=== PATIENT | female | born 1995 | race Two or more races ===

== ENCOUNTER 2020-07-30 10:22 | Inpatient (IN) | payer MEDICAID ==
[2020-07-30] MEDS ORDERED: RINGERS SOLUTION,LACTATED 500 ML IV ONE (10:29)
[2020-07-30] MEDS ORDERED: RINGERS SOLUTION,LACTATED 1,000 ML IV ONE (10:29)
[2020-07-30] MEDS ORDERED: DIPH/PERTUSS(ACELL)/TETANUS VAC/PF 0.5 ML SYR (>=10YO) IM PRN (10:35)
[2020-07-30] MEDS ORDERED: DIPHENHYDRAMINE HCL 25 MG CAPSULE PO PRN (10:35)
[2020-07-30] MEDS ORDERED: BENZOCAINE/MENTHOL AEROSOL SPRAY 56 ML TOP PRN (10:35)
[2020-07-30] MEDS ORDERED: DIBUCAINE 1% OINTMENT 28 GM TP PRN (10:35)
[2020-07-30] MEDS ORDERED: OXYTOCIN/0.9 % SODIUM CHLORIDE 30 UNIT/500 ML RTUINJ IV PRN (10:35)
[2020-07-30] MEDS ORDERED: FAMOTIDINE 20 MG TABLET PO PRN (10:35)
[2020-07-30] MEDS ORDERED: MAG HYDROX/AL HYDROX/SIMETH SUSP 30 ML UDCUP PO PRN (10:35)
[2020-07-30] MEDS ORDERED: ZOLPIDEM TARTRATE 5 MG TABLET PO PRN (10:35)
[2020-07-30] MEDS ORDERED: VARICELLA VACC/PF (1350 UNIT/0.5 ML) 0.5 ML VIAL SUBCUT PRN (10:35)
[2020-07-30] MEDS ORDERED: MAGNESIUM HYDROXIDE SUSP 30 ML UDCUP PO PRN (10:35)
[2020-07-30] MEDS ORDERED: ACETAMINOPHEN WITH CODEINE #3 TABLET PO PRN ×2 (10:35)
[2020-07-30] MEDS ORDERED: GLYCERIN/WITCH HAZEL LEAF 1 EACH MED..WIPE TP PRN (10:35)
[2020-07-30] MEDS ORDERED: ACETAMINOPHEN 650 MG SUPP.RECT PR PRN (10:35)
[2020-07-30] MEDS ORDERED: PSEUDOEPHEDRINE HCL 30 MG TABLET PO PRN (10:35)
[2020-07-30] MEDS ORDERED: ACETAMINOPHEN 325 MG TABLET PO PRN (10:35)
[2020-07-30] MEDS ORDERED: MEASLES,MUMPS&RUBELLA VACC/PF 0.5 ML VIAL SUBCUT PRN (10:35)
[2020-07-30] MEDS ORDERED: FENTANYL CITRATE INJ/PF 100 MCG/2 ML AMPUL IV ONE (10:39)
[2020-07-30 11:03] LABS: RBCS (WET MOUNT) 4+ RBCS SEEN; T.VAGINALIS (WET MOUNT) NO TRICHOMONAS SEEN; WBCS (WET MOUNT) RARE WBCS SEEN; YEAST (WET MOUNT) NO YEAST SEEN
[2020-07-30 11:05] LABS: ABSOLUTE MONOCYTES (AUTO) 0.3 10^3/uL (0.1-1.4); BASOPHILS % (AUTO) 0.3 % (0-2); EOSINOPHILS % (AUTO) 0.1 % (0-6); HEMATOCRIT 29.7 % (36.0-47.0); HEMOGLOBIN 9.6 g/dL (12.0-15.5); LYMPHOCYTES % (AUTO) 8.2 % (13-45); MEAN CORPUSCULAR HEMOGLOBIN 27.1 pg (27.0-33.4); MEAN CORPUSCULAR HGB CONC 32.2 g/dL (32.0-36.0); MEAN CORPUSCULAR VOLUME 84 fl (80-97); MONOCYTES % (AUTO) 2.4 % (3-13); PLATELET COUNT 258 10^3/uL (150-450); RED BLOOD COUNT 3.53 10^6/uL (3.72-5.28); RED CELL DISTRIBUTION WIDTH 14.2 % (11.5-14.0); TOTAL CELLS COUNTED % (AUTO) 100 %; WHITE BLOOD COUNT 12.4 10^3/uL (4.0-10.5)
[2020-07-30 11:11] LABS: APPEARANCE,URINE CLOUDY; BILIRUBIN,URINE NEGATIVE (NEGATIVE); COLOR,URINE YELLOW; GLUCOSE, URINE NEGATIVE (NEGATIVE); KETONES,URINE 20 mg/dL (NEGATIVE); PROTEIN,URINE 30 mg/dL (NEGATIVE); URINE SPECIFIC GRAVITY 1.015; UROBILINOGEN,URINE NEGATIVE mg/dL (<2.0)
--- NOTE | 2020-07-30 11:23 | Admission Physical ---
Datetime Report Generated by CPN: 07/30/2020 11:23 CURRENT ADMISSION Hx Assessment: The History has been Updated Chief Complaint Other: Delivered by EMS, 34 weeks Indication for Induction: Not Applicable Admit Impression- Other: Delivered by EMS ALLERGIES Medication Allergies: No Medication Allergies: No Known Allergies (07/30/2020) Latex: No Latex Allergies OBSTETRICAL HISTORY EDC: 09/05/2020 00:00 : 2 Para: 1 SEE RECORDS Alcohol: No Marijuana : No Cocaine: No Other Illicit Drugs: No Cigarettes: Never Smoker. [id number] PHYSICAL EXAM General: Normal HEENT: Deferred Neurologic: Deferred Thyroid: Normal Heart: Normal Lungs: Normal Breast: Normal Back: Normal Abdomen: Normal Genitourinary Exam: Normal Extremities: Normal DTRs: Normal Pelvic Type: Adequate Physical Exam Comments: 25 y/o OB care in [place] at [facility] OB Labs and GTT done Vital Signs: Reviewed FETUS A Admit Comment: 24 y/o G2 Pa admitteed to LD after delivering at home by EMS, Apr 25 2018, PNC in [facility], lives in [place], unsure when she started PNC, thinks after 20 weeks, sono last Friday for growth and was told everything was ok, No smoking, no alcohol, no illegal drugs, , hsb Da age 27, blk, feels safe at home No covid, no travel in last year, no Toxo, taking PNV's and antibiotic for UTI Hx depression and anxiety, parents live here in [place] Plans to breast and bottle Dr. Beltran examined pt and removed placenta, given Ancef and IV Pitocin, baby in nursery Will obtain records Stable condition PLANS FOR LABOR AND DELIVERY Labor and Delivery: None Pain Management: None Feeding Preference: Both Benefit of Breast Feed Discussed: Yes Circumcision: N/A INFORMED CONSENT Assignment: Yi Beltran MD Signature: with User ID: [email or web address] : with User ID: [email or web address]
[2020-07-30 11:27] LABS: URINE AMPHETAMINES SCREEN NEGATIVE; URINE BARBITURATES SCREEN NEGATIVE; URINE BENZODIAZEPINES SCREEN NEGATIVE; URINE COCAINE SCREEN NEGATIVE; URINE MARIJUANA (THC) SCREEN NEGATIVE; URINE METHADONE SCREEN NEGATIVE; URINE PHENCYCLIDINE SCREEN NEGATIVE
[2020-07-30] MEDS ORDERED: CEFAZOLIN 2 GM/D5W RTU 2 GM/50 ML RTUPB IV SCH (12:00)
[2020-07-30 12:28] LABS: CHLAM PCR NOT DETECTED (NOT DETECT)
--- NOTE | 2020-07-30 15:40 | Warning Signs in Babies ---
VOD Warning Signs Datetime Report Generated by [facility]: 07/30/2020 15:40 VOD#608 -Warning Signs in Babies: Viewed with Parent(s)/Family (07/30/2020 12:53:Beth Powers RN)
[2020-07-30] MEDS ORDERED: MISOPROSTOL 0.2 MG TABLET ONE (16:39)
--- NOTE | 2020-07-30 17:22 | Delivery Summary ---
Del Sum A-C Datetime Report Generated by CPN: 07/30/2020 17:21 DELIVERY PERSONNEL DELIVERY PERSONNEL: [id number] Delivery Doctor:: Yi Beltran MD Nurse Gear Technician Certified:: Grace Sharma CNM Labor and Delivery Nurse:: Beth Powers RN Neonatal Nurse Practitioner:: JAMAL Espitia Pattern Gater/WIREWORKER: [facility], [employer] MATERNAL INFORMATION Delivery Anesthesia: None Meds After Delivery Comment: Pitocin 20 units IM Estimated Blood Loss (ml): 50 Delivery QBL: 50 Maternal Complications: Precipitous Labor (<3hrs) Provider Comments: Pt arrived by EMS with baby on chest skin to skin and cor already clamped and cut. reportedly delivered approx 30 minutes previously. Female Infant to NICU immediately upon arrival. Placenta delivered intact spontaneously. Small right labial laceration hemostatic. FF at U. Mother stable upon provider leaving the room LABOR SUMMARY EDC: 09/05/2020 00:00 No. Babies in Womb: 1 Attempted: No Labor Anesthesia: None LABOR INFORMATION Oxytocin: N/A Group B Beta Strep: negative STAGES OF LABOR Stage 3 hr: 0 Stage 3 min: 44 VAGINAL DELIVERY Episiotomy: None Laceration #1: Vaginal Laceration Extension #1: N/A Other Laceration: R vaginal, labial, hemostatic Laceration Repair: Not Applicable Sponge Count Correct: Yes Sharps Count Correct: Yes CSECTION DELIVERY Primary Indication: N/A Secondary Indication: N/A CSection Incidence: N/A Labor: N/A Elective: N/A CSection Incision: N/A BABY A INFORMATION Infant Delivery Date/Time: 07/30/2020 09:34 Method of Delivery: Vaginal Nurse Controlled Delivery: No Born in Route : Yes : N/A Forceps: N/A Vacuum Extraction: N/A Shoulder Dystocia : No PLACENTA INFORMATION BABY A Placenta Delivery Time : 07/30/2020 10:18 Placenta Method of Delivery: Expressed Placenta Status: Delivered INFORMATION BABY A Gestational Age at Delivery: 34.5 Gestational Status: Late - 34- 36.6 Weeks Infant Outcome : Liveborn Infant Condition : Stable Sex: Female IDENTIFICATION BABY A Verification Date/Time: 07/30/2020 11:48 ID Band Number: [id number] Mother's Name Verified: Yes Infant RN Verifying : M. Gio RN, C. Lowell RN WEIGHT/LENGTH BABY A Birthweight (gm): 1976 Infant Weight (lb): 4 Infant Weight (oz): 6 Infant Length (in): 18.50 Infant Length (cm): 46.99 BABY B INFORMATION : N/A SIGNATURES Signature: with User ID: [email or web address]
--- NOTE | 2020-07-30 17:22 | Birth Certificate Data ---
Cert Data Datetime Report Generated by CPN: 07/30/2020 17:21 CERTIFICATE DATA Delivery Provider: Yi Beltran, MD (07/30/2020 10:48:Beth Gio, RN) Mother's Height 50b. Height Inches: 60 (07/30/2020 11:24:QS system process) Mother's Weight 51a. Pre- Weight (lbs): 88 (07/30/2020 10:48:Beth Powers RN) 51b. Weight at Delivery (lbs): 211 (07/30/2020 11:24:QS system process) 52. Dt Last Normal Menses Began: 11/30/2019 00:00 (07/30/2020 10:48:Beth Powers RN) Infections Present/Treated Results this Hospital Visit : Negative (07/30/2020 10:48:Beth Powers RN) Results this Hospital Visit: Negative (07/30/2020 10:48:Beth Powers RN) Results this Hospital Visit: Negative (07/30/2020 10:48:Beth Powers RN) 53i. Date Tested: 05/04/2020 00:00 (07/30/2020 10:48:Beth Powers RN) 53j. Test Result: Negative (07/30/2020 10:48:Beth Powers RN) Cigarette Smoking Cigarette Smoking: Never Smoker. [id number] (07/30/2020 10:48:Beth Powers RN) 57a. Induction of Labor: N/A (07/30/2020 10:48:Beth Powers RN) 57h. Intolerance of Labor: N/A (07/30/2020 10:48:Beth Powers RN) : N/A (07/30/2020 10:48:Beth Powers RN) 57i. Epidural/Spinal Anesthesia: None (07/30/2020 10:48:Beth Powers RN) Method of Delivery 58a. Forceps - Unsuccessful A: N/A (07/30/2020 10:48:Beth Powers RN) 58b. Vacuum - Unsuccessful A: N/A (07/30/2020 10:48:Beth Powers RN) Final Route and Method of Del 58d. Baby A Route/Delivery: Vaginal (07/30/2020 10:48:Beth Powers RN) 58e. Trial of Labor Attempted: No (07/30/2020 10:48:Beth Powers RN) 58e. Trial of Labor Attempted A: N/A (07/30/2020 10:48:Beth Powers RN) 58e. Trial of Labor Attempted B: N/A (07/30/2020 10:48:Beth Powers RN) Maternal Morbidity 59b. 3rd or 4th Degree Lacs: Vaginal (07/30/2020 10:48:Beth Powers RN) 59b. 3rd or 4th Degree Lacs: R vaginal, labial, hemostatic (07/30/2020 10:48:Beth Powers RN) Birthweight Baby A: 1976 (07/30/2020 10:48:Beth Diego RN) 60a. Pounds : 4 (07/30/2020 10:48:QS system process) 60b. Ounces: 6 (07/30/2020 10:48:QS system process) 61. GA at Delivery Baby A: 34.5 (07/30/2020 10:48:Beth Powers RN) : Late - 34- 36.6 Weeks (07/30/2020 10:48:QS system process)
[2020-07-30] MEDS: FERROUS SULFATE 325 MG TABLET PO SCH (18:07)
[2020-07-30] MEDS: DOCUSATE SODIUM 100 MG CAPSULE PO SCH (18:25)
[2020-07-30] MEDS ORDERED: FENTANYL CITRATE INJ/PF 100 MCG/2 ML AMPUL ONE (19:19)
[2020-07-30] MEDS ORDERED: CEFAZOLIN 2 GM/D5W RTU 2 GM/50 ML RTUPB IV ONE (19:20)
[2020-07-30] MEDS: IBUPROFEN 800 MG TABLET PO SCH (21:18)
[2020-07-31] MEDS: IBUPROFEN 800 MG TABLET PO SCH ×4 (02:56→21:48)
[2020-07-31 06:33] LABS: HEMATOCRIT 29.7 % (36.0-47.0); HEMOGLOBIN 9.7 g/dL (12.0-15.5); MEAN CORPUSCULAR HEMOGLOBIN 27.4 pg (27.0-33.4); MEAN CORPUSCULAR HGB CONC 32.7 g/dL (32.0-36.0); MEAN CORPUSCULAR VOLUME 84 fl (80-97); PLATELET COUNT 267 10^3/uL (150-450); RED BLOOD COUNT 3.55 10^6/uL (3.72-5.28); RED CELL DISTRIBUTION WIDTH 14.5 % (11.5-14.0); WHITE BLOOD COUNT 13.8 10^3/uL (4.0-10.5)
--- NOTE | 2020-07-31 09:45 | PDOC PROGRESS REPORT ---
Subjective-OB Progress Note for:: 07/31/20 - PP Day #1, doing well, no complaints. S/p Home delivery, PNC in [place]. Pt UOB, has voided, A+, Rubella Immune, breast and bottlefeeding Physical Exam (OB) Vital Signs: Temp Pulse Resp BP Pulse Ox 97.5 F 75 16 127/58 H 100 07/31/20 07:35 07/31/20 07:35 07/31/20 07:35 07/31/20 07:35 07/31/20 07:35 Intake & Output 07/30/20 07/31/20 08/01/20 06:59 06:59 06:59 Intake Total 50 Balance 50 Weight 96 kg - General General Appearance: Appears well, Alert In distress: None - PIH/Pre-Eclampsia Clonus: Negative Headache: Absent Epigastric Pain: No Visual Changes: No - Maternal Morbidity 59. Maternal Morbidity (serious complications experinced by the mother associated with labor and delivery: None of the above - Lochia Lochia Amount: Small 10-25 ml Lochia Color: Rubra/Red - Abdomen Description: Soft Hernia Present: No Fundal Description: Firm, Midline Fundal Height: u/u - u/2 - Respiratory Respiratory Status: No respiratory distress - Abdominal Distension: No distension Tenderness: Nontender - Genitourinary Genitourinary Note: voiding - Extremities Upper extremity: Normal inspection Lower extremities: Normal inspection - Neurological Cognition: Normal Orientation: AAOx4 - Psychological Associated symptoms: Normal affect, Normal mood - Skin Skin Temperature: Warm Skin Moisture: Dry Objective-Diagnostic Laboratory: 07/31/20 06:01 07/30/20 07/30/20 07/30/20 10:30 10:43 10:43 WBC 12.4 H RBC 3.53 L Hgb 9.6 L Hct 29.7 L MCV 84 MCH 27.1 MCHC 32.2 RDW 14.2 H Plt Count 258 Seg Neutrophils % 89.0 H Urine Color YELLOW Urine Appearance CLOUDY Urine pH 6.0 Ur Specific Man 1.015 Urine Protein 30 H Urine Glucose (UA) NEGATIVE Urine Ketones 20 H Urine Blood MODERATE H Urine RBC (Auto) 14 Blood Type A POSITIVE Antibody Screen NEGATIVE 07/31/20 06:01 WBC 13.8 H RBC 3.55 L Hgb 9.7 L Hct 29.7 L MCV 84 MCH 27.4 MCHC 32.7 RDW 14.5 H Plt Count 267 Seg Neutrophils % Urine Color Urine Appearance Urine pH Ur Specific Man Urine Protein Urine Glucose (UA) Urine Ketones Urine Blood Urine RBC (Auto) Blood Type Antibody Screen Assessment and Plan(PN) - Assessment and Plan (1) Anemia affecting Qualifiers: Trimester: third trimester Qualified Code(s): O99.013 - Anemia complicating , third trimester Is this a current diagnosis for this admission?: Yes (2) Precipitous delivery, delivered (current hospitalization) Is this a current diagnosis for this admission?: Yes (3) delivery, delivered Is this a current diagnosis for this admission?: Yes Plan:: Routine PP orders, ambulation encouraged. - Time Spent with Patient Time with patient: Less than 15 minutes - Disposition Anticipated Discharge Disposition: Home, Self Care Anticipated Discharge Timeframe: within 24 hours
[2020-07-31] MEDS: FERROUS SULFATE 325 MG TABLET PO SCH ×2 (10:25→18:26)
[2020-07-31] MEDS: DOCUSATE SODIUM 100 MG CAPSULE PO SCH ×2 (10:25→18:26)
[2020-07-31] MEDS: SENNOSIDES/DOCUSATE 8.6-50 MG 1 EACH TABLET PO SCH (10:26)
[2020-07-31] MEDS: PRENATAL VITAMIN W DHA CAPSULE PO SCH (10:26)
[2020-08-01] MEDS: IBUPROFEN 800 MG TABLET PO SCH (05:24)
[2020-08-01 07:37] LABS: HEPATITIS C VIRUS AB <0.1 s/co ratio (0.0-0.9)
[2020-08-01 07:46] VITALS: BP 109/73
[2020-08-01 08:09] LABS: HEPATITS B SURFACE ANTIGEN Negative (Negative)
[2020-08-01] MEDS: FERROUS SULFATE 325 MG TABLET PO SCH (10:35)
[2020-08-01] MEDS: PRENATAL VITAMIN W DHA CAPSULE PO SCH (10:35)
[2020-08-01] MEDS: DOCUSATE SODIUM 100 MG CAPSULE PO SCH (10:35)
[2020-08-01] MEDS: SENNOSIDES/DOCUSATE 8.6-50 MG 1 EACH TABLET PO SCH (10:35)
--- NOTE | 2020-08-01 11:16 | PDOC DISCHARGE SUMMARY ---
Impression - Admit/DC Date/PCP Admission Date/Primary Care Provider: 07/30/20 10:31 Discharge Date: 08/01/20 - Discharge Diagnosis (1) Encounter for care after unplanned out of hospital delivery Is this a current diagnosis for this admission?: Yes (2) Anemia affecting Is this a current diagnosis for this admission?: Yes (3) delivery, delivered Is this a current diagnosis for this admission?: Yes - Additional Information Discharge Diet: Regular Discharge Activity: Balance Activity w/Rest, Pelvic Rest Home Medications: No122/Iron/Folic Acid [ Multi Tablet] 1 tab PO DAILY 07/30/20 Acetaminophen [Tylenol 325 mg Tablet] 650 mg PO Q4HP PRN tablet 08/01/20 Hospital Course 59. Maternal Morbidity (serious complications experinced by the mother associat ed with labor and delivery: None of the above Results Laboratory Results: WBC 13.8 10^3/uL (4.0-10.5) H 07/31/20 06:01 RBC 3.55 10^6/uL (3.72-5.28) L 07/31/20 06:01 Hgb 9.7 g/dL (12.0-15.5) L 07/31/20 06:01 Hct 29.7 % (36.0-47.0) L 07/31/20 06:01 MCV 84 fl (80-97) 07/31/20 06:01 MCH 27.4 pg (27.0-33.4) 07/31/20 06:01 MCHC 32.7 g/dL (32.0-36.0) 07/31/20 06:01 RDW 14.5 % (11.5-14.0) H 07/31/20 06:01 Plt Count 267 10^3/uL (150-450) 07/31/20 06:01 Lymph % (Auto) 8.2 % (13-45) L 07/30/20 10:43 [place] % (Auto) 2.4 % (3-13) L 07/30/20 10:43 Eos % (Auto) 0.1 % (0-6) 07/30/20 10:43 Baso % (Auto) 0.3 % (0-2) 07/30/20 10:43 Absolute Neuts (auto) 11.0 10^3/uL (1.7-8.2) H 07/30/20 10:43 Absolute Lymphs (auto) 1.0 10^3/uL (0.5-4.7) 07/30/20 10:43 Absolute Monos (auto) 0.3 10^3/uL (0.1-1.4) 07/30/20 10:43 Absolute Eos (auto) 0.0 10^3/uL (0.0-0.6) 07/30/20 10:43 Absolute Basos (auto) 0.0 10^3/uL (0.0-0.2) 07/30/20 10:43 Seg Neutrophils % 89.0 % (42-78) H 07/30/20 10:43 Urine Color YELLOW 07/30/20 10:30 Urine Appearance CLOUDY 07/30/20 10:30 Urine pH 6.0 (5.0-9.0) 07/30/20 10:30 Ur Specific [place] 1.015 07/30/20 10:30 Urine Protein 30 mg/dL (NEGATIVE) H 07/30/20 10:30 Urine Glucose (UA) NEGATIVE mg/dL (NEGATIVE) 07/30/20 10:30 Urine Ketones 20 mg/dL (NEGATIVE) H 07/30/20 10:30 Urine Blood MODERATE (NEGATIVE) H 07/30/20 10:30 Urine Nitrite (Reflex) NEGATIVE (NEGATIVE) 07/30/20 10:30 Urine Bilirubin NEGATIVE (NEGATIVE) 07/30/20 10:30 Urine Urobilinogen NEGATIVE mg/dL (<2.0) 07/30/20 10:30 Leukocyte Esterase Rfl LARGE (NEGATIVE) H 07/30/20 10:30 Urine RBC (Auto) 14 /HPF 07/30/20 10:30 Urine Bacteria (Auto) 3+ /HPF 07/30/20 10:30 Urine WBC (Reflex) > 182 /HPF 07/30/20 10:30 Urine WBC Clumps MANY /HPF 07/30/20 10:30 Squamous Epi Cells Auto 2 /HPF 07/30/20 10:30 Urine Mucus (Auto) RARE /LPF 07/30/20 10:30 Urine Ascorbic Acid NEGATIVE (NEGATIVE) 07/30/20 10:30 Trichomonas (Wet Prep) NO TRICHOMONAS SEEN 07/30/20 10:40 Vaginal WBC RARE WBCS SEEN 07/30/20 10:40 Vaginal RBC 4+ RBCS SEEN 07/30/20 10:40 Vaginal Yeast NO YEAST SEEN 07/30/20 10:40 Urine Opiates Screen NEGATIVE 07/30/20 10:30 Urine Methadone Screen NEGATIVE 07/30/20 10:30 Ur Barbiturates Screen NEGATIVE 07/30/20 10:30 Ur Phencyclidine Scrn NEGATIVE 07/30/20 10:30 Ur Amphetamines Screen NEGATIVE 07/30/20 10:30 U Benzodiazepines Scrn NEGATIVE 07/30/20 10:30 Urine Cocaine Screen NEGATIVE 07/30/20 10:30 U Marijuana (THC) Screen NEGATIVE 07/30/20 10:30 RPR NONREACTIVE (NONREACTIVE) 07/30/20 10:43 Chlamydia DNA (PCR) NOT DETECTED (NOT DETECT) 07/30/20 10:40 Hep Bs Antigen Negative (Negative) 07/30/20 10:43 Hepatitis C (TABATHA) <0.1 s/co ratio (0.0-0.9) 07/30/20 10:43 Hep C Verif Com 1 Comment (.) 07/30/20 10:43 HIV 1&2 Antibody NEGATIVE (NEGATIVE) 07/30/20 10:43 N.gonorrhoeae DNA (PCR) NOT DETECTED (NOT DETECT) 07/30/20 10:40 Rubella IgG Antibody 18.20 IU/mL 07/30/20 10:43 Rubella IgG Ab Interp POSITIVE 07/30/20 10:43 Blood Type A POSITIVE 07/30/20 10:43 Antibody Screen NEGATIVE 07/30/20 10:43 Plan Plan of Treatment: follow up with OB care [place]
[2020-08-01] MEDS ORDERED: CEFTRIAXONE INJ 500 MG VIAL IM ONE ×2 (12:43→13:00)
[2020-08-01] MEDS ORDERED: LIDOCAINE HCL 1% INJ (FOR 500 MG VIAL) INJ ONE (13:00)
== END 2020-08-01 17:10 | disposition home or self-care (01) | DRG 776 ==
LOC: LC 10:22 → LR 10:31 → 2S 16:30
PROVIDERS: ADMIT Student in an Organized Health Care Education/Training Program; ATTEND Student in an Organized Health Care Education/Training Program
DX: O90.81 Anemia of the puerperium (principal); O86.20 Urinary tract infection following delivery, unspecified; D64.9 Anemia, unspecified; B96.20 Unspecified Escherichia coli [E. coli] as the cause of diseases classified elsewhere; Z3A.34 34 weeks gestation of pregnancy
CPT/HCPCS: 36415; 59414; 80307; 81001; 85025; 85027; 86592; 86701; 86762; 86803; 86804; 86850; 86900; 86901; 87077; 87081; 87086; 87088; 87186; 87210; 87340; 87491; 87591; 88307; J0690; J3010; J3490